=== PATIENT | female | born 1930 | race Caucasian/White ===

== ENCOUNTER 2019-01-24 08:50 | Observation (INO) ==
[2019-01-24] MEDS ORDERED: NS 500 ML IV ONE (09:21)
[2019-01-24] MEDS ORDERED: BENTYL IM ONE ×2 (09:32→12:42)
[2019-01-24 09:57] LABS: HEMATOCRIT 37.1 % (37.0-47.0); HEMOGLOBIN 11.7 g/dL (12.0-16.0); LYMPH# 0.43 X1000 (1.2-3.4); LYMPH% 6.2 % (20.5-51.1); MCH 29.5 PG (27-31); MCHC 31.5 g/dL (33-37); MCV 93.7 FL (81-99); MONO# 0.41 X1000 (0.11-0.59); MONO% 5.9 % (1.7-9.3); MPV 9.7 FL (7.4-10.4); NEUT# 6.13 X1000 (1.4-6.5); NEUT% 87.9 % (42.2-75.2); PLT 196 X1000 (130-400); RBC 3.96 XMIL (4.2-5.4); RDW 16.2 % (11.5-14.5); WBC 6.97 X1000 (4.8-10.8)
[2019-01-24 10:09] LABS: AGAP 14; ALBUMIN 4.1 g/dL (3.5-5.0); ALKALINE PHOSPHATASE 92 U/L (32-104); BUN 20 mg/dL (8-22); CHLORIDE 100 mmol/L (98-107); COSMO 277; CREATININE 0.8 mg/dL (0.5-0.9); ESTIMATED GFR > 60; GLUCOSE 139 mg/dL (70-104); GOT 14 U/L (10-30); GPT 8 U/L (10-36); POTASSIUM 3.5 mmol/L (3.5-5.1); SODIUM 136 mmol/L (136-145); TCO2 21 mmol/L (25-35); TOTAL PROTEIN 6.4 g/dL (6.3-8.3)
[2019-01-24 10:11] LABS: INR 0.99; PROTIME 13.6 Seconds (11.0-16.0); PTT 25.3 Seconds (22.3-41.8)
--- NOTE | 2019-01-24 10:38 | PROVIDER DOCUMENTATION ---
This chart was entered by Elizbaeth Staples Scribe, acting as scribe for Boni Hooper MD. HPI-Abdominal Pain/GI Problem - General Chief Complaint: Diarrhea Stated Complaint: VIRUS Time Seen by Provider: 01/24/19 09:06 Source: patient, family (daughter) Allergies/Adverse Reactions: Patient Allergies Allergy/AdvReac Type Severity Reaction Status Date / Time Sulfa (Sulfonamide Allergy Unknown Unknown Verified 03/17/17 13:37 Antibiotics) Corticosteroids AdvReac Unknown Verified 03/17/17 13:37 (Glucocorticoids) Home Medications: Home Medication List Medication Instructions Recorded Confirmed Last Taken Type Pantoprazole [Protonix] 40 mg PO DAILY@0700 02/18/13 03/18/17 1 Day Ago History ~03/17/17 Losartan [Cozaar] 50 mg PO DAILY 03/17/17 03/18/17 1 Day Ago History ~03/17/17 Levofloxacin [Levaquin] 500 mg PO WSUPPER #6 tab 03/19/17 Unknown Rx Metronidazole [Flagyl] 500 mg PO Q8H #18 tab 03/19/17 Unknown Rx - History of Present Illness-ABD Nature of Presenting Problems: 88 yowf presents to the ed with c/o weakness, diarrhea and near syncopal episode. pt was seen in [facility] ed last night and dc home with julia. daughter sts had negative CT while in their ed. daughter refused another CT while here even though pt had near syncope and fell to her knees getting off toilet. pt is on blood thinners. pt sts diarrhea started last night after left [facility] ed and has continued through the morning. pt on exam appears dry but is [id number] in appearance Abdominal Pain Onset Location: reports: generalized abdomen Quality of Pain: reports: other (tenderness) Severity in ED: reports: mild Onset/Duration: reports: last night Timing: reports: still present, intermittent Activities at Onset: reports: light activity Exposure to sick contacts?: Yes (has been to office for blood work recently) Modifying Factors: improves with: nothing Associated Symptoms: reports: diarrhea, fatigue, nausea, vomiting, weakness, other (near syncope). denies: back/neck pain, chest pain, cough, fever/chills, headaches, shortness of breath Last BM: this morning Dark Stools Present?: reports: none noticed Rectal Bleeding: reports: none # of Diarrhea Episodes: 5 Rectal Pain: reports: none # of Vomiting Episodes: 2 Emesis Description: reports: clear Bruising or Bleeding Gums?: No Similar Symptoms Previously?: Yes Recently seen or treated by another doctor?: Yes (was seen in [facility] ed last night) Review of Systems - Adult - REVIEW OF SYSTEMS - ADULT ROS:: ROS per family (daughter) Constitutional: reports: see HPI, fatique. denies: chills, fever Eyes: reports: no symptoms reported Ears, Nose, Mouth & Throat: reports: no symptoms reported Cardiovascular: denies: chest pain, palpitations Respiratory: denies: cough, shortness of breath, wheezing Gastrointestinal: reports: see HPI, abdominal pain, diarrhea, nausea, vomiting. denies: rectal bleeding Genitourinary: reports: no symptoms reported Musculoskeletal: reports: see HPI, muscle weakness. denies: back pain, neck p ain Integumentary: reports: no symptoms reported Neurological: denies: dizziness/vertigo, headache/migraines Psychiatric: reports: no symptoms reported Endocrine: reports: no symptoms reported Hematologic/Lymphatic: reports: no symptoms reported Allergic/Immunologic: reports: no symptoms reported All Other Systems: Reviewed and Negative Past History - Adult - PAST MEDICAL HISTORY-ADULT Review of Records: reports: Old Records Reviewed, Nursing Assessment Review, Medications Reviewed, Social history reviewed & non-contributory. Major Childhood Illnesses: reports: denies history Cardiovascular: reports: HTN Respiratory: reports: denies history Gastrointestinal: reports: GERD Obstetrical/Gynecological: reports: uterine/ovarian cancer Genitourinary: reports: denies history Musculoskeletal: reports: denies history Neurological: reports: denies history Psychiatric: reports: denies history Endocrine/Immune: reports: denies history Other Conditions: reports: denies history - PRIOR SURGERIES/PROCEDURES Surgical/Procedure History: reports: hysterectomy, tonsillectomy, orthopedic (extremity), back/neck (01/25/17), other (cataract removal) - IMMUNIZATION STATUS Childhood Immunizations: See Nurse Assessment Flu Vaccine: See Nurse Assessment - FAMILY HISTORY Family History: reviewed, not pertinent - SOCIAL HISTORY Smoking: denies Substance Use: denies Living Situation: alone Physical Exam-General - PHYSICAL EXAM-ADULT Initial Vital Signs Reviewed: Yes - CONSTITUTIONAL General Appearance: appears well, alert, no apparent distress - EYES Eyes: PERRL/EOMI, pale conjunctivae - HEAD, EARS, NOSE, MOUTH & THROAT HENMT: negative: moist mucous membranes (dry oral) - NECK Neck: non-tender, full range of motion, normal inspection - RESPIRATORY Respiratory: chest non-tender, lungs clear, normal breath sounds - CARDIOVASCULAR Cardiovascular: normal peripheral pulses, regular rate, rhythm - GASTROINTESTINAL (ABDOMEN) Abdominal Exam: normal bowel sounds, soft, tenderness (generalized) - LYMPHATIC Lymphatic: no adenopathy - MUSCULOSKELETAL Back Exam: no CVA tenderness, no vertebral tenderness Extremity: non-tender, normal inspection, normal capillary refill, pelvis stable - SKIN Integumentary: normal color, normal turgor, warm/dry - NEUROLOGIC Neurologic: grossly normal - PSYCHIATRIC Psych/Mental Status: normal mood/affect, normal thought content, normal thought process, oriented x 3 Progress - PLAN OF CARE/RESULTS Progress/Plan/Lab Results: Vital Signs - 8 hr 01/24/19 09:16 Temperature 98.1 F Pulse Rate 88 Respiratory Rate 16 Blood Pressure 110/058 O2 Sat by Pulse Oximetry 95 Orders Category Date Time Status ED: Orthostatic Vital Signs (E DIRECTED Care 01/24/19 09:21 Active Saline Loc NOW Care 01/24/19 09:[address] HEAD W/O CONTRAST [CT] Stat Exams 01/24/19 09:21 Ordered C DIFF TOXIN PL Stat Lab 01/24/19 09:21 Uncollected CBC WITH ELECTRONIC DIFF [HEME] Stat Lab 01/24/19 09:20 Uncollected COMPREHENSIVE METABOLIC PANEL [CHEM] Stat Lab 01/24/19 09:21 Uncollected PROTIME WITH INR [COAG] Stat Lab 01/24/19 09:21 Uncollected PTT [COAG] Stat Lab 01/24/19 09:21 Uncollected TROPONIN T Stat Lab 01/24/19 09:21 Ordered 0.9% Sodium Chloride Inj [Ns] 500 ml Med 01/24/19 09:21 Active IV 999 mls/hr EKG [EKG] Stat Ther 01/24/19 09:21 Ordered Result Diagrams: 01/24/19 09:30 01/24/19 09:30 - REASSESSMENT Reassessment #1 Time Reassessed: 12:05 Status: improving - EKG 1 Time of EKG reading by physician:: 13:00 EKG Read and Signed by:: Boni Hooper EKG Interpretation (*Must complete 3 of following elements*): Abnormal Rate: 82 Rhythm: nsr [place]: normal QRS: normal SD Interval: normal ST Wave: normal Comments: nonspecific T wave abnormality - CONSULTS/PCP/HOSPITALIST Notification #1 *Consult/PCP/Hospitalist*: hositalist dr benitez Time Discussed: 10:29 Consult Disposition: Admit Departure - Departure Date of Disposition Decision: 01/24/19 Time of Disposition Decision: 10:37 DIAGNOSIS: Diarrhea, Dehydration, Near syncope, Weakness Disposition: ADMITTED INPATIENT 09 Certified Medical Emergency: Emergent Condition: Fair Referrals and Follow-Ups: None,PCP [Primary Care Provider] - - Critical Care Note This patient required my direct & personal management of CC.: No Attestation - Physician/ BLAIR Attestation Patient care was provided by Advanced Practice Provider:: No The physician spent face to face time with patient:: Yes Advanced Practice Provider documentation review:: Supervising physician onsite and consulted in the evaluation and care of this patient. The physician did have a face to face encounter with the patient. This chart was documented by the indicated scribe, (Elizabeth Staples Scribe) and accurately reflects the services I performed and decisions made by me, Boni Hooper MD, as attested by the provider's signature.
[2019-01-24] MEDS ORDERED: TYLENOL PO PRN ×2 (13:00→17:01)
[2019-01-24] MEDS ORDERED: ZOFRAN IV PRN (13:00)
--- NOTE | 2019-01-24 14:34 | EKG Report ---
Test Performed on : 01/24/2019 1:00:06 PM Test Reason : SYNCOPAL EPISODE Blood Pressure : / mmHG Vent. Rate : 082 BPM Atrial Rate : 082 BPM P-R Int : 160 ms QRS Dur : 090 ms QT Int : 382 ms P-R-T Axes : 049 046 018 degrees QTc Int : 446 ms Normal sinus rhythm. Nonspecific T wave abnormality Abnormal ECG When compared with ECG of 04-NOV-2014 22:46, Nonspecific T wave abnormality now evident in Lateral leads Unconfirmed Result
[2019-01-24] MEDS: NS 1,000 ML IV SCH (16:24)
[2019-01-24] MEDS ORDERED: TYLENOL PM PO PRN (16:55)
[2019-01-24] MEDS ORDERED: BENADRYL PO PRN (17:02)
[2019-01-24 18:09] LABS: BILIRUBIN URINE NEGATIVE (NEGATIVE); BLOOD URINE NEGATIVE (NEGATIVE); COLOR YELLOW; GLUCOSE URINE NEGATIVE (NEGATIVE); KETONE URINE TRACE mg/dL (NEGATIVE); LEUKOCYTES URINE TRACE (NEGATIVE); NITRITE URINE NEGATIVE (NEGATIVE); PH URINE 6.5; PROTEIN URINE 1+(30 mg/dL) mg/dL (NEGATIVE); SP GRAVITY URINE 1.015; UROBILINOGEN URINE NORMAL
[2019-01-24 18:14] LABS: CLARITY CLEAR (CLEAR); URINE BACTERIA NEGATIVE /HFP; URINE EPITHELIAL CELLS <10 /HPF (<10); URINE RBC <10 /HPF (<10); URINE SOURCE CLEAN CATCH; URINE WBC <10 /HPF (<10)
--- NOTE | 2019-01-24 18:57 | HISTORY AND PHYSICAL ---
CHIEF COMPLAINT: Diarrhea. HISTORY OF PRESENT ILLNESS: The patient is a very pleasant 88-year-old female who presented to the emergency department with generalized weakness, diarrhea. She had a near syncopal episode earlier today. She stood up, felt lightheaded, and felt as though she was going to pass out. Thankfully, this did not occur. She actually was seen at [facility] yesterday with similar symptoms of diarrhea, was given 1 bag of fluids and then requested that she be discharged home, which she was. Unfortunately, after going home, her diarrhea has continued. She has had decreased oral intake. ALLERGIES: Sulfa and glucocorticoids. MEDICATIONS: Protonix, Cozaar 50, Eliquis. REVIEW OF SYSTEMS: As noted above. Denies any fevers, chills. Denies any blood in her emesis or stool. Has had diarrhea for the past couple of days. Has had decreased oral intake. Denies any headaches, blurred vision. Did feel lightheaded earlier when she stood. She is feeling much better after IV fluids. Denies chest pain, palpitations, shortness of breath. Denies dysuria, frequency, urgency. Denies skin rashes. PAST MEDICAL AND SURGICAL HISTORY: Hypertension, reflux. She has had a history of hysterectomy and tonsillectomy. She has had cataract removal. She has had neck surgery in 2017. FAMILY HISTORY: Noncontributory. SOCIAL HISTORY: The patient lives at home, is cared for by her family. Does not smoke or drink. PHYSICAL EXAMINATION: VITAL SIGNS: Reviewed. Temperature 98 degrees, pulse 88, respiratory rate 18, blood pressure 110/58, saturation 95% on room air. GENERAL: Patient is awake, alert. She is very pleasant. She is in no respiratory distress. HEENT: Normocephalic. NECK: Supple. CARDIOVASCULAR: Regular rate. CHEST: Clear, nonlabored. ABDOMEN: Soft, diffusely but minimally tender in the bilateral epigastric and upper quadrant regions. Positive bowel sounds. EXTREMITIES: Moves all extremities. No edema. NEUROLOGIC: No focal changes. SKIN: Warm and dry no rashes. ASSESSMENT: 1. Gastroenteritis, most likely viral. 2. Hyperglycemia. 3. Syncopal episode. 4. Dehydration. 5. Generalized weakness. PLAN: We will continue patient in the hospital. IV fluids, pain control, Zofran as needed. We will not start antibiotics as this certainly appears to be viral. Further orders as needed. cc: Jhonathan Egan MD
[2019-01-24] MEDS: ELIQUIS PO SCH (21:50)
[2019-01-25] MEDS: NS 1,000 ML IV SCH (04:56)
[2019-01-25 05:53] LABS: HEMATOCRIT 32.4 % (37.0-47.0); HEMOGLOBIN 10.1 g/dL (12.0-16.0); MCH 29.7 PG (27-31); MCHC 31.2 g/dL (33-37); MCV 95.3 FL (81-99); RBC 3.4 XMIL (4.2-5.4); RDW 16.5 % (11.5-14.5); WBC 4.7 X1000 (4.8-10.8)
[2019-01-25 06:11] VITALS: BP 114/56
[2019-01-25 06:12] LABS: AGAP 9; ALBUMIN 3.5 g/dL (3.5-5.0); ALKALINE PHOSPHATASE 71 U/L (32-104); BUN 16 mg/dL (8-22); CALCIUM 8.4 mg/dL (8.8-10.2); CHLORIDE 106 mmol/L (98-107); COSMO 280; CREATININE 0.6 mg/dL (0.5-0.9); ESTIMATED GFR > 60; GLUCOSE 89 mg/dL (70-104); GOT 18 U/L (10-30); GPT 10 U/L (10-36); MAGNESIUM 1.5 mg/dL (1.5-2.7); POTASSIUM 3.1 mmol/L (3.5-5.1); SODIUM 140 mmol/L (136-145); TCO2 24 mmol/L (25-35); TOTAL PROTEIN 5.6 g/dL (6.3-8.3)
[2019-01-25] MEDS ORDERED: PRILOSEC PO SCH (07:00)
[2019-01-25] MEDS ORDERED: MAGNESIUM SULFATE 2 GM/S.W.I. 2 GM/50 ML IVPB IV ONE (08:00)
[2019-01-25] MEDS: COZAAR PO SCH ×2 (08:58→09:03)
[2019-01-25] MEDS: ELIQUIS PO SCH (08:58)
[2019-01-25] MEDS ORDERED: KLOR-CON PO ONE (09:00)
[2019-01-25] MEDS ORDERED: VITAMIN D PO SCH (09:00)
[2019-01-25] MEDS ORDERED: NON-FORMULARY MED (Omeprazole 40 MG) PO SCH (09:00)
[2019-01-25] MEDS ORDERED: VITAMIN B-12 PO SCH (09:00)
--- NOTE | 2019-01-25 17:40 | DISCHARGE SUMMARY ---
ADMISSION DATE: 01/24/2019 DISCHARGE DATE: 01/25/2019 DISCHARGE DIAGNOSES: 1. Syncope, resolved. 2. Volume depletion, resolved. 3. Diarrhea, resolved. 4. Gastroenteritis, improved. 5. Hyperglycemia. 6. Generalized weakness, appears improved. CONSULTATIONS: None. PROCEDURES: None. BRIEF HOSPITAL COURSE: The patient is an 88-year-old female who presented to [place] [facility] secondary to nausea and decreased oral intake. She has been having diarrhea. She actually recently was seen at [facility] but asked to be discharged home. Unfortunately, after going home she continued to have diarrhea and therefore she presented to our ER. She had a syncopal episode. We admitted her to the hospital and treated with IV fluids and symptomatic treatment. Thankfully, on discharge she is awake, alert, and is feeling much better. She is in no distress. DISPOSITION: Patient will be discharged home. Will continue to follow up outpatient with her primary care. She will continue her home medications - Protonix, Cozaar, and Eliquis. Discussed the importance of hydration. TIME SPENT: Greater than 30 minutes was spent in total care. cc: Jhonathan Egan MD
--- NOTE | 2019-01-25 20:35 | DISCHARGE SUMMARY ---
ADMISSION DATE: 01/24/2019 DISCHARGE DATE: 01/25/2019 CONSULTATIONS: None. PERTINENT PROCEDURES: EKG normal sinus rhythm, nonspecific T-wave abnormality at 82 beats per minutes. DISCHARGE DIAGNOSES: 1. Viral gastroenteritis, improved. 2. Hyperglycemia, improved. 3. Syncopal episode secondary to #1. 4. Dehydration resolved with IV fluids. 5. Generalized weakness, improving with IV fluids. 6. Hypokalemia. The patient has been given supplementation. HOSPITAL COURSE: Briefly, Ms. Martines is an 88-year-old female with a past medical history of hypertension and GERD, presented to the ED department with generalized weakness and diarrhea and a near syncopal episode. Earlier in the day, she stood up, felt lightheaded as if she was going to pass out. However, that did not occur. She went to [facility] on the with similar symptoms of diarrhea and was given a bag of fluids and requested that she be discharged home, which she was. Unfortunately after going home her diarrhea continued and she had decreased oral intake and she came to the hospital. She was rehydrated with IV fluids. She has been adequately hydrated. She has not had anymore episodes of diarrhea being admitted and she will be discharged home with her daughter. VITAL SIGNS: Temperature is 98.3 degrees, heart rate 70, respirations 18, blood pressure 114/56. O2 95% on room air. DISCHARGE DIET: Regular. DISCHARGE MEDICATIONS: Cozaar 50 mg p.o. daily. Eliquis 2.5 p.o. b.i.d. Prilosec 40 mg p.o. daily, Tylenol P.M. 1 each p.o. at bedtime. Vitamin B12 1000 mcg p.o. daily, D2 2000 units p.o. daily. FOLLOWUP: Ms. Martines is being discharged back home with family. She is to keep orally hydrated. She is to take all medications as prescribed. She can return to the ED or call 911 for any symptoms. Dictated by BUNNY Veloz for Jhonathan Egan MD cc: MD Edgar Mauro MD
== END 2019-01-25 12:14 | disposition home or self-care (01) ==
LOC: P.ED 08:50 → P.MEDSURG 13:34 → SUATTDRO 13:34 → INTOOBSV 13:34
PROVIDERS: ADMIT Family Medicine; ATTEND Family Medicine